=== PATIENT | female | born 1935 | race Caucasian/White ===

== ENCOUNTER → 2021-10-04 14:35 | Outpatient (CLI) | payer MEDICARE, SELFPAY ==
--- NOTE | ~2021-10-04 | XR_ITS ---
EXAMINATION: XR lumbar spine 2-3V EXAM DATE: 10/04/2021 15:56 INDICATION: Lumbar spondylosis TECHNIQUE: Lumber spine frontal, lateral, lateral L5-S1 projections for interpretation. There is no prior study for comparison. FINDINGS: There are L1 and L2 burst fractures with moderate to severe loss of the L1 vertebral body h eight anteriorly and moderate loss of the L2 vertebral body height anteriorly. There is mild compress ion fracture of L4 which has been treated with methylmethacrylate injection. No evidence of retropuls ion. There is a left hip gamma nail. There is severe mid and lower lumbar facet arthropathy. Bones ar e osteopenic. IMPRESSION: 1. Compression, burst fractures without acute fracture line. Can't exclude acute component to one of these. 2. Severe facet arthropathy. Reviewed, dictated and finalized at location G. RCUTTER IMPRESSION: 1. Compression, burst fractures without acute fracture line. Can't exclude acu te component to one of these. 2. Severe facet arthropathy.
--- NOTE | ~2021-10-04 | XR_ITS ---
EXAMINATION: XR thoracic spine 2V EXAM DATE: 10/04/2021 15:56 INDICATION: Thoracic back pain. TECHNIQUE: Frontal and lateral projections of the thoracic spine as well as lateral swimmers projecti on of the upper thoracic spine for interpretation. There is no prior study for comparison. FINDINGS: Bones are osteopenic. There is T8 burst fracture which is most likely chronic, no evidence of retropulsion. Moderate loss of this height overall. L1 and L2 burst fractures described with lumb ar spine report same date. The anterior wedging to these fractures are contributing to patient's kyph osis. The vertebral bodies are aligned in the AP dimension. There are no bony erosions identified. Mi ld to moderate lumbar levoscoliosis. There are cholecystectomy clips. IMPRESSION: 1. T8 chronic appearing burst fracture. 2. Mild to moderate levoscoliosis. 3. Osteopenia. Reviewed, dictated and finalized at location . [employer]
--- NOTE | ~2021-10-04 | XR_ITS ---
EXAMINATION: [id number] DATE: 10/04/2021 15:56 INDICATION: Rib pain. TECHNIQUE: An anteroposterior view of the chest, 2 views of the right ribs on 3 radiographs, and 2 vi ews of the left ribs on 3 radiographs were obtained. COMPARISON: None. FINDINGS: CHEST: There is mild atelectasis in the lower lung zones. Calcified pulmonary nodules and calcified h ilar lymph nodes are consistent with old granulomatous disease. No pleural effusion or pneumothorax. The heart size is normal. Surgical clips in the right upper quadrant are likely from cholecystectomy. BILATERAL RIBS: There is no rib fracture. There are changes of vertebroplasty in lumbar spine. IMPRESSION: 1. No rib fracture. 2. Mild atelectasis in the lower lung zones. Reviewed, dictated and finalized at location A. LE HELPER
== END ==
PROVIDERS: PCP Internal Medicine; Visit Provider Nurse Practitioner Adult Health
DX: M47.815 Spondylosis without myelopathy or radiculopathy, thoracolumbar region (principal); R07.81 Pleurodynia; M47.814 Spondylosis without myelopathy or radiculopathy, thoracic region; S32.011A Stable burst fracture of first lumbar vertebra, initial encounter for closed fracture; S32.021A Stable burst fracture of second lumbar vertebra, initial encounter for closed fracture; S22.061A Stable burst fracture of T7-T8 vertebra, initial encounter for closed fracture; M41.9 Scoliosis, unspecified
CPT/HCPCS: 71111; 72070; 72100

== ENCOUNTER → 2022-05-04 13:10 | Outpatient (CLI) | payer MEDICARE, SELFPAY ==
--- NOTE | ~2022-05-04 | XR_ITS ---
EXAMINATION: XR thoracic spine 3V DATE: 05/04/2022 13:30 INDICATION: Thoracic back pain TECHNIQUE: AP, lateral and lateral swimmer's views of the thoracic spine were obtained. COMPARISON: 10/04/2021 FINDINGS: The bones are osteopenic which limits sensitivity for fracture. There is a chronic T8 burst fracture without significant change. No additional fracture of the thoracic spine is identified. The re is moderate to severe loss of intervertebral disc space height in the midthoracic spine. IMPRESSION: 1. Chronic T8 burst fracture and moderate thoracic spondylosis without acute findings or significant interval change. Reviewed, dictated and finalized at location B. IMPRESSION: 1. Chronic T8 burst fracture and moderate thoracic spondylosis without acute fi ndings or significant interval change.
--- NOTE | ~2022-05-04 | XR_ITS ---
EXAMINATION: XR lumbar spine 2-3V DATE: 05/04/2022 13:30 INDICATION: Chronic low back pain TECHNIQUE: Anteroposterior and lateral views of the lumbar spine, and cone-down lateral view of the l umbosacral junction were obtained. COMPARISON: 10/04/2021 FINDINGS: The bones are diffusely osteopenic which limits sensitivity for fracture. There are chronic burst fractures of L1, L2, and L5. There is worsened loss of vertebral body height at L5. There is v ertebroplasty change of L4. There is no dislocation or subluxation. Severe facet osteoarthritis is no ashley in the lower lumbar spine. There is moderate loss of intervertebral disc space height at L5-S1. IMPRESSION: 1. Chronic burst and compression fractures of the lumbar spine with mild interval loss of vertebral b [place] height at L5. 2. Severe lumbar spondylosis. Reviewed, dictated and finalized at location B. IMPRESSION: 1. Chronic burst and compression fractures of the lumbar spine with mild interv al loss of vertebral body height at L5. 2. Severe lumbar spondylosis.
== END ==
PROVIDERS: PCP Internal Medicine; Visit Provider Internal Medicine
DX: M47.896 Other spondylosis, lumbar region (principal); S32.050D Wedge compression fracture of fifth lumbar vertebra, subsequent encounter for fracture with routine healing; X58.XXXD Exposure to other specified factors, subsequent encounter
CPT/HCPCS: 72072; 72100